=== PATIENT | male | born 1990 | race Caucasian/White ===

== ENCOUNTER 2018-09-17 22:46 | Emergency (ER) | payer SELFPAY ==
[~2018-09-17] VITALS: Ht 177.8 cm; Wt 72.0 kg
[2018-09-17 22:51] VITALS: Ht 177.8 cm; Wt 72.0 kg
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
[2018-09-17] MEDS ORDERED: morphine LIQ (10 MG/5 ML) CUP PO ONE (23:30)
[2018-09-17] MEDS ORDERED: IBUP-1542 PO (23:54)
[2018-09-17] MEDS ORDERED: HYDR-4011 PO (23:54)
[2018-09-17] MEDS ORDERED: CEPH-443 PO (23:54)
[2018-09-18 00:18] VITALS: BP 119/77; PULSE 80; RESP 18
== END 2018-09-18 00:48 | disposition home or self-care (01) ==
LOC: FTE 22:46
DX: S62.211A Bennett's fracture, right hand, initial encounter for closed fracture (principal); V29.9XXA Motorcycle rider (driver) (passenger) injured in unspecified traffic accident, initial encounter